=== PATIENT | female | born 1970 | race Caucasian/White ===

== ENCOUNTER 2018-01-14 05:22 | Day surgery (SDC) | payer BC ==
[2018-01-09 11:20] LABS: ABSOLUTE BASOPHILS # (AUTO) 0.1 10^3/uL (0.0-0.2); ABSOLUTE EOSINOPHILS # (AUTO) 0.1 10^3/uL (0.0-0.6); ABSOLUTE LYMPHOCYTES (AUTO) 2.5 10^3/uL (0.5-4.7); ABSOLUTE MONOCYTES (AUTO) 0.5 10^3/uL (0.1-1.4); ABSOLUTE NEUT (AUTO) 3.7 10^3/uL (1.7-8.2); BASOPHILS % (AUTO) 0.8 % (0-2); EOSINOPHILS % (AUTO) 2.2 % (0-6); HEMATOCRIT 31.8 % (36.0-47.0); HEMOGLOBIN 10.6 g/dL (12.0-15.5); LYMPHOCYTES % (AUTO) 36.6 % (13-45); MEAN CORPUSCULAR HEMOGLOBIN 27.4 pg (27.0-33.4); MEAN CORPUSCULAR HGB CONC 33.3 g/dL (32.0-36.0); MEAN CORPUSCULAR VOLUME 82 fl (80-97); MONOCYTES % (AUTO) 6.8 % (3-13); PLATELET COUNT 357 10^3/uL (150-450); RED BLOOD COUNT 3.87 10^6/uL (3.72-5.28); RED CELL DISTRIBUTION WIDTH 16.5 % (11.5-14.0); SEGMENTED NEUTROPHILS % (AUTO) 53.6 % (42-78); TOTAL CELLS COUNTED % (AUTO) 100 %; WHITE BLOOD COUNT 6.9 10^3/uL (4.0-10.5)
[2018-01-09 11:24] LABS: APPEARANCE,URINE CLOUDY; BILIRUBIN,URINE NEGATIVE (NEGATIVE); COLOR,URINE YELLOW; GLUCOSE, URINE NEGATIVE (NEGATIVE); KETONES,URINE NEGATIVE (NEGATIVE); LEUKOCYTE ESTERASE,URINE LARGE (NEGATIVE); NITRITE,URINE POSITIVE (NEGATIVE); PROTEIN,URINE NEGATIVE (NEGATIVE); UROBILINOGEN,URINE NEGATIVE mg/dL (<2.0)
[2018-01-09 11:32] LABS: ALANINE AMINOTRANSFERASE 13 U/L (9-52); ALBUMIN 4.1 g/dL (3.5-5.0); ALKALINE PHOSPHATASE 61 U/L (38-126); ANION GAP 12 (5-19); ASPARTATE AMINO TRANSFERASE 15 U/L (14-36); BILIRUBIN,DIRECT 0.1 mg/dL (0.0-0.4); BILIRUBIN,TOTAL 0.3 mg/dL (0.2-1.3); BLOOD UREA NITROGEN 13 mg/dL (7-20); CALCIUM 9.4 mg/dL (8.4-10.2); CARBON DIOXIDE 25 mmol/L (22-30); CHLORIDE 106 mmol/L (98-107); GLUCOSE 77 mg/dL (75-110); POTASSIUM 4.4 mmol/L (3.6-5.0); SODIUM 142.8 mmol/L (137-145); TOTAL PROTEIN 6.9 g/dL (6.3-8.2)
[~2018-01-14 05:22] MED LIST: CEFAZOLIN 1 GM/D5W RTU 1 GM/50 ML RTUPB IV ONE; CEFAZOLIN 1 GM/D5W RTU 1 GM/50 ML RTUPB IV PRN
[2018-01-14] MEDS ORDERED: MORPHINE SULFATE 10 MG/ML INJ ONE (06:53)
[2018-01-14] MEDS ORDERED: ONDANSETRON HCL INJ/PF 4 MG/2 ML SDV ONE ×2 (06:53→08:59)
[2018-01-14] MEDS ORDERED: MIDAZOLAM 2 MG/2 ML INJ ONE (06:53)
[2018-01-14] MEDS ORDERED: DEXAMETHASONE SOD PHOSPHATE INJ 4 MG/1 ML VIAL ONE (06:53)
[2018-01-14] MEDS ORDERED: FENTANYL CITRATE INJ/PF 100 MCG/2 ML AMPUL ONE (06:53)
[2018-01-14] MEDS ORDERED: PROPOFOL INJ 200 MG/20 ML VIAL IV ONE (06:53)
[2018-01-14] MEDS ORDERED: DIPHENHYDRAMINE HCL 50 MG/ML VIAL IV PRN (08:03)
[2018-01-14] MEDS ORDERED: OXYCODONE-ACETAMINOPHEN 5-325 MG TABLET PO PRN ×2 (08:03)
[2018-01-14] MEDS ORDERED: PROMETHAZINE HCL INJ 25 MG/1 ML VIAL IV PRN ×2 (08:03)
[2018-01-14] MEDS ORDERED: FENTANYL CITRATE INJ/PF 100 MCG/2 ML AMPUL IV PRN ×2 (08:03)
[2018-01-14] MEDS ORDERED: MORPHINE SULFATE 10 MG/ML INJ IV PRN (08:03)
[2018-01-14] MEDS ORDERED: KETOROLAC TROMETHAMINE INJ/PF 30 MG/1 ML SDV ONE (08:50)
[2018-01-14] MEDS ORDERED: PROMETHAZINE HCL INJ 25 MG/1 ML VIAL ONE (09:09)
[2018-01-14 10:17] VITALS: BP 98/65
--- NOTE | 2018-01-14 12:26 | OPERATIVE REPORT E ---
Operative Report NAME: KEYON REZA : 1970 AGE: 47Y DATE OF SURGERY: 01/14/2018 ROOM: PREOPERATIVE DIAGNOSES: 1. Menometrorrhagia. 2. Dysfunctional uterine bleeding. POSTOPERATIVE DIAGNOSES: 1. Menometrorrhagia. 2. Dysfunctional uterine bleeding. OPERATION: D and C, hysteroscopy, and NovaSure. SURGEON: POOL GARVEY M.D. ANESTHESIA: General. PERTINENT HISTORY AND OPERATIVE FINDINGS: This is a 47-year-old multip who was having trouble with menometrorrhagia and dysfunctional uterine bleeding, ultimately decided to proceed with a dilatation and curettage, a hysteroscopy, and NovaSure. She was aware of the risks and benefits. At the time of surgery the vagina was normal, the vulva was normal, the cervix appeared to be normal, uterus was midplane and normal size, and adnexa was negative. OPERATIVE PROCEDURE: Patient was brought into the OR, placed on the table in a supine position, and then inducted under general anesthesia. Following this she was repositioned in dorsal lithotomy position, prepped and draped in a sterile fashion. The bladder was drained of approximately 100 mL of clear yellow urine. A pelvic under anesthesia was performed with the above findings. A weighted vag speculum was inserted and the cervix was grasped on its anterior lip with a single-tooth tenaculum and then Allis. The uterus was sounded to 9 cm and the cervix measured 4.5 cm, giving me a cavity length of 4.5 cm. She was dilated up to a #8 Hegar dilator and then the hysteroscope was gently inserted through the cervix and the os. Saline was turned on. There was good visualization of the endometrial cavity. It had already been curetted. The polyp forceps were used after removing the scope after removing the normal saline. No further tissue was removed. The NovaSure was removed, it was purged, and then gently inserted through the cervix until the endometrial cavity and carried to the fundus. It was gently opened as it was pushed back from the fundus. Then, going north, south, east, west, and rotating 45 degrees in both directions and pulling back in between, a cavity length was ascertained of 4.3. The NovaSure was then empowered and we had a burn time which was *------* I believe it was 1 minute 9 seconds. Having done this the NovaSure was closed and it was removed. The hysteroscope was reinserted. There was a good burn of the endometrial cavity. The excess saline was removed and this terminated the procedure after removing the Allis and the single-tooth tenaculum. There was no evidence of ongoing bleeding. The weighted speculum was removed. Anesthesia was discontinued and the patient was transferred to the recovery room in satisfactory condition. She had a negligible blood loss. DICTATING PHYSICIAN: POOL GARVEY M.D. [id number] PHY#: [id number] ID: [id number] JOB#: [id number] ACCT: [id number] cc:POOL GARVEY M.D. >
== END 2018-01-14 10:05 | disposition home or self-care (01) ==
LOC: OROUT 05:22
PROVIDERS: ATTEND Obstetrics & Gynecology
DX: N92.1 Excessive and frequent menstruation with irregular cycle (principal); N93.8 Other specified abnormal uterine and vaginal bleeding; D64.9 Anemia, unspecified; Z88.5 Allergy status to narcotic agent; Z79.899 Other long term (current) drug therapy
CPT/HCPCS: 36415; 85025; 81025; 80053; 81001; 88305 ×2; 58563; J2250; J0690; J1100; J1885; J2270; J2550; J2405; J2704; 952; J3010